=== PATIENT | male | born 1980 | race African-American/Black ===

== ENCOUNTER 2021-09-12 21:09 | Emergency (ER) | payer OTHER ==
[~2021-09-12] VITALS: Ht 170.2 cm; Wt 63.5 kg
[2021-09-12 21:09] VITALS: BP 126/70
--- NOTE | 2021-09-12 21:09 | NUR ---
POT BIBA BLS AND TAKEN TO BED AT THIS TIME Addendum: 09/12/21 at 2348 by AMANDA Amendment undprosper in EDM - 09/12/21 at 2350 by AMANDA PT BIBA ALS TAKEN TO BED AT THIS TIME Addendum: 09/12/21 at 2350 by AMANDA PT BIBA BLS AT THIS TIME
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
--- NOTE | 2021-09-12 21:35 | NUR ---
ERMD AT BEDSIDE
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
--- NOTE | 2021-09-12 22:00 | NUR ---
PD AT BEDSIDE
[2021-09-12] MEDS ORDERED: CYCL-711 PO (22:01)
[2021-09-12] MEDS ORDERED: IBUP-2213 PO (22:01)
[2021-09-12] MEDS ORDERED: LID5T TP (22:01)
[2021-09-12] MEDS ORDERED: KETOROLAC 60 MG/2 ML VIAL IM ONE (22:05)
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
--- NOTE | 2021-09-12 22:30 | NUR ---
PD TALKING TO PATIENTS MOTHER IN LOBBY
[2021-09-12 22:44] VITALS: BP 135/80
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
--- NOTE | 2021-09-12 22:45 | NUR ---
Chart checked and completed.
== END 2021-09-12 22:44 | disposition home or self-care (01) ==
LOC: MED 21:09
DX: S16.1XXA Strain of muscle, fascia and tendon at neck level, initial encounter (principal); J45.909 Unspecified asthma, uncomplicated; Z79.899 Other long term (current) drug therapy; Z88.5 Allergy status to narcotic agent; V89.2XXA Person injured in unspecified motor-vehicle accident, traffic, initial encounter; Y93.89 Activity, other specified; Y92.89 Other specified places as the place of occurrence of the external cause; Y99.8 Other external cause status
CPT/HCPCS: 96372; 99283; J1885